=== PATIENT | female | born 1975 | race Caucasian/White ===

== ENCOUNTER 2017-12-20 14:29 | Emergency (ER) | payer BC, OTHER ==
[~2017-12-20] VITALS: Ht 160 cm; Wt 70.3 kg
[2017-12-20] MEDS ORDERED: IBUP-1957 PO (14:40)
--- NOTE | 2017-12-20 15:02 | NUR ---
PT WAS D/C TO HOME. D/C INSTRUCTIONS GIVEN TO THE PT.
[2017-12-20 15:04] VITALS: BP 129/72
== END 2017-12-20 15:05 | disposition home or self-care (01) ==
LOC: ER 14:29
DX: G89.29 Other chronic pain (principal); Z76.5 Malingerer [conscious simulation]; I10 Essential (primary) hypertension; F41.9 Anxiety disorder, unspecified; Z88.5 Allergy status to narcotic agent; Z79.1 Long term (current) use of non-steroidal anti-inflammatories (NSAID)
CPT/HCPCS: 99283; A4663

== ENCOUNTER 2022-09-10 10:08 | Emergency (ER) | payer BC, OTHER ==
[~2022-09-10] VITALS: Ht 160 cm; Wt 74.8 kg
[~2022-09-10 10:08] MED LIST: IBUP-1957 PO
[2022-09-10] MEDS ORDERED: ACETAMINOPHEN 325 MG TABLET PO ONE (10:30)
[2022-09-10] MEDS ORDERED: ACETAMINOPHEN ES 500 MG TABLET ONE (10:35)
[2022-09-10 10:40] VITALS: BP 119/82
== END 2022-09-10 10:42 | disposition home or self-care (01) ==
LOC: ER 10:08
DX: K08.89 Other specified disorders of teeth and supporting structures (principal); G89.4 Chronic pain syndrome; I10 Essential (primary) hypertension
CPT/HCPCS: A4663; A9150